=== PATIENT | male | born 2000 | race Caucasian/White ===

== ENCOUNTER 2021-05-18 21:20 | Emergency (ER) | payer OTHER ==
[~2021-05-18] VITALS: Ht 172.7 cm; Wt 56.8 kg
[2021-05-18] MEDS ORDERED: TIZA4CAP PO (21:30)
[2021-05-19 09:14] VITALS: BP 105/55
== END 2021-05-19 09:15 | disposition home or self-care (01) ==
LOC: M ED 21:20
DX: R20.2 Paresthesia of skin (principal); G95.89 Other specified diseases of spinal cord

== ENCOUNTER → 2022-01-23 | Outpatient (REF) ==
[~2022-01-23] MED LIST: TIZA4CAP PO
== END ==
LOC: M PLAIMG 10:57
PROVIDERS: ATTEND Internal Medicine
DX: R07.9 Chest pain, unspecified (principal)